=== PATIENT | female | born 1965 | race Caucasian/White ===

== ENCOUNTER 2022-12-16 10:01 | Outpatient (CLI) | payer BC | END 2022-12-16 10:02 | disposition home or self-care (01) | LOC: CSHULT 10:01 | PROVIDERS: ATTEND Internal Medicine Hematology & Oncology | DX: N63.10 Unspecified lump in the right breast, unspecified quadrant (principal) | CPT/HCPCS: 19083; 88305; 88341; 88342 ==

== ENCOUNTER 2024-08-08 12:23 | Outpatient (CLI) | payer BC | END 2024-08-08 12:24 | disposition home or self-care (01) | LOC: CSHMAMMO 12:23 | PROVIDERS: ATTEND Internal Medicine | DX: C50.911 Malignant neoplasm of unspecified site of right female breast (principal); Z85.3 Personal history of malignant neoplasm of breast; M85.89 Other specified disorders of bone density and structure, multiple sites | CPT/HCPCS: 77080 ==